=== PATIENT | female | born 1990 | race Caucasian/White ===

== ENCOUNTER 2017-03-09 12:45 | Emergency (ER) | payer OTHER ==
[~2017-03-09] VITALS: Ht 160 cm; Wt 74.8 kg
[~2017-03-09 12:45] MED LIST: NAPROSYN500 MG PO; ZOFRAN4 MG PO
[2017-03-09] MEDS ORDERED: SEROQUEL XR150 MG PO (12:52)
[2017-03-09] MEDS ORDERED: VISTARIL25 MG PO (12:53)
[2017-03-09] MEDS ORDERED: Zofran4 MG PO (13:57)
[2017-03-09] MEDS ORDERED: NAPROSYN500 MG PO (13:57)
== END 2017-03-09 14:14 | disposition home or self-care (01) ==
LOC: ED 12:45
DX: R51 Headache (principal)

== ENCOUNTER 2017-05-17 16:31 | Emergency (ER) | payer OTHER ==
[~2017-05-17 16:31] MED LIST changes: +SEROQUEL XR150 MG PO; +VISTARIL25 MG PO; +Zofran4 MG PO
== END 2017-05-17 17:47 | disposition home or self-care (01) ==
LOC: ED 16:31
DX: R51 Headache (principal); R11.2 Nausea with vomiting, unspecified

== ENCOUNTER 2018-02-22 12:18 | Emergency (ER) | payer OTHER ==
[~2018-02-22] VITALS: Ht 160 cm; Wt 74.8 kg
[2018-02-22] MEDS ORDERED: TOPAMAX25 M2 PO (12:22)
[2018-02-22] MEDS ORDERED: LEXAPRO10 MG PO (12:22)
== END 2018-02-22 14:30 | disposition home or self-care (01) ==
LOC: ED 12:18
DX: G43.909 Migraine, unspecified, not intractable, without status migrainosus (principal); Z79.899 Other long term (current) drug therapy

== ENCOUNTER 2019-04-11 16:32 | Emergency (ER) | payer SELFPAY ==
[~2019-04-11] VITALS: Ht 160 cm; Wt 74.8 kg
[~2019-04-11 16:32] MED LIST changes: +LEXAPRO10 MG PO; +TOPAMAX25 M2 PO
[2019-04-11 17:28] LABS: BASO % 0.6 % (0.0-1.0); EOS # 0.1 10*3/uL (0.0-0.4); HEMATOCRIT 39.6 % (37.0-47.0); HEMOGLOBIN 12.9 g/dl (12.0-16.0); LYMPH # 1.3 10*3/uL (1.3-4.4); LYMPH % 19.3 % (27.0-41.0); MEAN CELL VOLUME 91.5 fl (81.0-99.0); MEAN CORPUSCULAR HGB 29.8 pg (27.0-31.0); MEAN CORPUSCULAR HGB CONC 32.6 g/dl (33.0-37.0); MEAN PLATELET VOLUME 10.4 fl (9.6-12.3); MONO # 0.5 10*3/uL (0.1-1.0); MONO % 7.4 % (3.0-9.0); NEUT # 4.8 10*3/uL (2.3-7.9); NEUT % 71.6 % (47.0-73.0); PLATELET COUNT AUTOMATED 251 10*3/uL (130-400); RED BLOOD COUNT 4.33 10*6/uL (4.10-5.10); RED CELL DISTRI WIDTH 12.9 % (0-14.5); WHITE BLOOD COUNT 6.8 10*3/uL (4.8-10.8)
[2019-04-11 17:44] LABS: ALKALINE PHOSPHATASE 81 U/L (45-117); BUN 14 mg/dl (7-24); CHLORIDE 107 mmol/L (98-107); CREATININE 0.86 mg/dL (0.55-1.02); POTASSIUM 3.8 mmol/L (3.5-5.1); SGOT/AST 14 IU/L (3-35); SGPT/ALT 17 U/L (12-78); SODIUM 137 mmol/L (136-145); TOTAL PROTEIN 7.5 gm/dL (6.4-8.2)
[2019-04-11] MEDS ORDERED: PREDNISONE20 M1 PO (19:02)
[2019-04-11] MEDS ORDERED: TESSALON PERLE100 MG PO (19:02)
[2019-04-11] MEDS ORDERED: AVPAK AZITHROM250 MG PO (19:02)
== END 2019-04-11 19:14 | disposition home or self-care (01) ==
LOC: ED 16:32
PROVIDERS: Nurse Practitioner Family
DX: J20.9 Acute bronchitis, unspecified (principal); G43.909 Migraine, unspecified, not intractable, without status migrainosus; F41.9 Anxiety disorder, unspecified; Z79.899 Other long term (current) drug therapy

== ENCOUNTER 2020-08-13 04:00 | Emergency (ER) | payer OTHER ==
[~2020-08-13] VITALS: Ht 160 cm; Wt 72.6 kg
[~2020-08-13 04:00] MED LIST changes: +AVPAK AZITHROM250 MG PO; +PREDNISONE20 M1 PO; +TESSALON PERLE100 MG PO
== END 2020-08-13 05:33 | disposition home or self-care (01) ==
LOC: ED 04:00
DX: R51.9 Headache, unspecified (principal); Z79.899 Other long term (current) drug therapy

== ENCOUNTER 2020-12-22 10:02 | Emergency (ER) | payer OTHER ==
[~2020-12-22] VITALS: Ht 160 cm; Wt 70.3 kg
== END 2020-12-22 11:15 | disposition left against medical advice (07) ==
LOC: ED 10:02
DX: R51.9 Headache, unspecified (principal); Z53.21 Procedure and treatment not carried out due to patient leaving prior to being seen by health care provider

== ENCOUNTER → 2021-04-10 | Outpatient (CLI) | payer OTHER | END | disposition home or self-care (01) | LOC: COVID19 16:11 | PROVIDERS: ATTEND Internal Medicine | DX: Z20.822 Contact with and (suspected) exposure to COVID-19 (principal) ==

== ENCOUNTER 2022-10-01 15:09 | Emergency (ER) | payer OTHER ==
[~2022-10-01] VITALS: Ht 160 cm; Wt 77.1 kg
[2022-10-01] MEDS ORDERED: NAPROSYN500 MG PO (17:24)
[2022-10-01] MEDS ORDERED: CYCLOBENZAPRINE5 M3 PO (17:24)
== END 2022-10-01 17:50 | disposition home or self-care (01) ==
LOC: ED 15:09
DX: M62.830 Muscle spasm of back (principal); F41.9 Anxiety disorder, unspecified; G43.909 Migraine, unspecified, not intractable, without status migrainosus; Z98.890 Other specified postprocedural states

== ENCOUNTER 2023-03-15 18:01 | Emergency (ER) | payer OTHER ==
[~2023-03-15] VITALS: Ht 160 cm; Wt 79.4 kg
[~2023-03-15 18:01] MED LIST changes: +CYCLOBENZAPRINE5 M3 PO
[2023-03-15] MEDS ORDERED: PROZAC20 MG PO (18:29)
[2023-03-15] MEDS ORDERED: VYVANSE30 MG PO (18:29)
[2023-03-15] MEDS ORDERED: ABILIFY5 MG PO (18:29)
[2023-03-15] MEDS ORDERED: MAXALT10 MG PO (18:30)
[2023-03-15 18:59] LABS: BASO % 0.5 % (0.0-1.0); EOS # 0.1 10*3/uL (0.0-0.4); EOS % 1.4 % (1.0-4.0); HEMATOCRIT 37.7 % (37.0-47.0); LYMPH # 1.4 10*3/uL (1.3-4.4); LYMPH % 24.2 % (27.0-41.0); MEAN CELL VOLUME 85.5 fl (81.0-99.0); MEAN CORPUSCULAR HGB 25.9 pg (27.0-31.0); MEAN CORPUSCULAR HGB CONC 30.2 g/dl (33.0-37.0); MEAN PLATELET VOLUME 9.4 fl (9.6-12.3); MONO # 0.4 10*3/uL (0.1-1.0); MONO % 7.2 % (3.0-9.0); NEUT # 3.8 10*3/uL (2.3-7.9); NEUT % 66.5 % (47.0-73.0); PLATELET COUNT AUTOMATED 294 10*3/uL (130-400); RED BLOOD COUNT 4.41 10*6/uL (4.10-5.10); RED CELL DISTRI WIDTH 15.3 % (0-14.5); WHITE BLOOD COUNT 5.7 10*3/uL (4.8-10.8)
[2023-03-15 19:20] LABS: ALKALINE PHOSPHATASE 86 U/L (46-116); BUN 13 mg/dl (9-23); CHLORIDE 105 mmol/L (98-107); POTASSIUM 4.3 mmol/L (3.4-5.1); SGPT/ALT 25 U/L (5-49); TOTAL PROTEIN 6.7 gm/dL (6.0-8.0)
== END 2023-03-15 20:09 | disposition home or self-care (01) ==
LOC: ED 18:01
PROVIDERS: Nurse Practitioner Family
DX: G43.909 Migraine, unspecified, not intractable, without status migrainosus (principal); R11.2 Nausea with vomiting, unspecified; F41.9 Anxiety disorder, unspecified; Z98.890 Other specified postprocedural states

== ENCOUNTER 2023-07-12 17:37 | Emergency (ER) | payer OTHER ==
[~2023-07-12] VITALS: Ht 160 cm; Wt 81.6 kg
[~2023-07-12 17:37] MED LIST changes: +ABILIFY5 MG PO; +MAXALT10 MG PO; +PROZAC20 MG PO; +VYVANSE30 MG PO
[2023-07-12] MEDS ORDERED: CYCLOBENZAPRINE10 MG PO (18:00)
[2023-07-12] MEDS ORDERED: Ketorolac Tromethamine 60 MG/2 ML VIAL IM ONE (18:05)
[2023-07-12] MEDS ORDERED: Cyclobenzaprine Hydrochlorid 10 MG TAB PO ONE (18:10)
== END 2023-07-12 19:30 | disposition home or self-care (01) ==
LOC: ED 17:37
DX: S39.012A Strain of muscle, fascia and tendon of lower back, initial encounter (principal); F41.9 Anxiety disorder, unspecified; G43.909 Migraine, unspecified, not intractable, without status migrainosus; Z98.890 Other specified postprocedural states; X50.0XXA Overexertion from strenuous movement or load, initial encounter; Y93.89 Activity, other specified; Y92.89 Other specified places as the place of occurrence of the external cause; Y99.8 Other external cause status

== ENCOUNTER 2023-07-21 11:26 | Emergency (ER) | payer OTHER ==
[~2023-07-21] VITALS: Ht 160 cm; Wt 81.6 kg
[~2023-07-21 11:26] MED LIST changes: +CYCLOBENZAPRINE10 MG PO
[2023-07-21 12:58] LABS: BASO % 0.5 % (0.0-1.0); EOS # 0.1 10*3/uL (0.0-0.4); EOS % 1.2 % (1.0-4.0); HEMATOCRIT 38.8 % (37.0-47.0); LYMPH # 1.8 10*3/uL (1.3-4.4); LYMPH % 29.8 % (27.0-41.0); MEAN CELL VOLUME 86.8 fl (81.0-99.0); MEAN CORPUSCULAR HGB 25.7 pg (27.0-31.0); MEAN CORPUSCULAR HGB CONC 29.6 g/dl (33.0-37.0); MEAN PLATELET VOLUME 9.5 fl (9.6-12.3); MONO # 0.4 10*3/uL (0.1-1.0); MONO % 6.1 % (3.0-9.0); NEUT # 3.7 10*3/uL (2.3-7.9); NEUT % 62.2 % (47.0-73.0); PLATELET COUNT AUTOMATED 354 10*3/uL (130-400); RED BLOOD COUNT 4.47 10*6/uL (4.10-5.10); WHITE BLOOD COUNT 5.9 10*3/uL (4.8-10.8)
[2023-07-21 13:22] LABS: ALKALINE PHOSPHATASE 100 U/L (46-116); BUN 15 mg/dl (9-23); CHLORIDE 106 mmol/L (98-107); POTASSIUM 3.7 mmol/L (3.4-5.1); SGPT/ALT 66 U/L (5-49); TOTAL PROTEIN 6.5 gm/dL (6.0-8.0)
[2023-07-21 13:29] LABS: ETHYL ALCOHOL < 3.0 mg/dl (<3)
[2023-07-21 13:47] LABS: BILIRUBIN Negative (Negative); BLOOD Negative (Negative); CLARITY Cloudy (Clear); COLOR Yellow (Yellow); GLUCOSE Negative (Negative); KETONE Negative (Negative); LEUKO ESTERASE Negative (Negative); NITRITE Negative (Negative); PH 6.5 (4.5-8.0); SPECIFIC GRAVITY 1.025 (1.001-1.030)
[2023-07-21 13:55] LABS: URINE AMPHETAMINES Negative (1000ng/ml); URINE BARBITURATES Negative (200ng/ml); URINE BENZODIAZEPINES Negative (200ng/ml); URINE CANNABINOIDS (THC) Negative (50ng/ml); URINE COCAINE Negative (300ng/ml); URINE METHADONE Negative (300ng/ml); URINE OPIATES Negative (300ng/ml); URINE PHENCYCLIDINE Negative (25ng/ml)
[2023-07-21 13:58] LABS: BACTERIA 2+
[2023-07-21] MEDS ORDERED: CIPRO500 MG PO (14:30)
== END 2023-07-21 15:03 | disposition home or self-care (01) ==
LOC: ED 11:26
PROVIDERS: Internal Medicine
DX: N39.0 Urinary tract infection, site not specified (principal); G43.909 Migraine, unspecified, not intractable, without status migrainosus; F41.9 Anxiety disorder, unspecified; Z98.890 Other specified postprocedural states

== ENCOUNTER 2025-02-13 19:04 | Emergency (ER) | payer OTHER ==
[~2025-02-13] VITALS: Ht 160 cm; Wt 86.2 kg
[~2025-02-13 19:04] MED LIST changes: +CIPRO500 MG PO
[2025-02-13] MEDS ORDERED: SODIUM CHLORIDE 0.9% 1,000 ML IV ONE (19:40)
[2025-02-13] MEDS ORDERED: Ondansetron Hydrochloride 4 MG/2 ML VIAL IV ONE (19:40)
[2025-02-13] MEDS ORDERED: diphenhydrAMINE hydrochloride 50 MG/ML VIAL IV ONE (19:40)
== END 2025-02-13 20:59 | disposition home or self-care (01) ==
LOC: ED 19:04
DX: G43.909 Migraine, unspecified, not intractable, without status migrainosus (principal); F41.9 Anxiety disorder, unspecified; Z98.890 Other specified postprocedural states; Z87.440 Personal history of urinary (tract) infections

== ENCOUNTER 2025-03-13 13:45 | Emergency (ER) | payer OTHER ==
[2025-03-13] MEDS ORDERED: SODIUM CHLORIDE 0.9% 1,000 ML IV ONE (14:25)
[2025-03-13] MEDS ORDERED: diphenhydrAMINE hydrochloride 50 MG/ML VIAL IV ONE (14:25)
[2025-03-13] MEDS ORDERED: Metoclopramide Hydrochloride 10 MG/2 ML VIAL IV ONE (14:25)
[2025-03-13] MEDS ORDERED: Motrin,Rufen800 MG PO (15:58)
[2025-03-13] MEDS ORDERED: Ondansetron4 MG PO (15:58)
== END 2025-03-13 15:57 | disposition home or self-care (01) ==
LOC: ED 13:45
DX: G43.909 Migraine, unspecified, not intractable, without status migrainosus (principal); R11.0 Nausea; F90.9 Attention-deficit hyperactivity disorder, unspecified type; F41.9 Anxiety disorder, unspecified